=== PATIENT | female | born 1990 | race Caucasian/White ===

== ENCOUNTER 2020-11-25 18:10 | Emergency (ER) | payer OTHER ==
--- NOTE | 2020-11-25 18:39 | NUR ---
PATIENT LEFT WITHOUT BEING SEEN BY DR. EDEN . NO FURTHER CARE PROVIDED FOR PATIENT.
== END 2020-11-25 18:39 | disposition left against medical advice (07) ==
LOC: MED 18:10
DX: Z53.21 Procedure and treatment not carried out due to patient leaving prior to being seen by health care provider (principal)